=== PATIENT | male | born 1970 | race Caucasian/White ===

== ENCOUNTER 2017-06-13 00:58 | Emergency (ER) | payer BC ==
[~2017-06-13] VITALS: Ht 182.8 cm; Wt 131.5 kg
[~2017-06-13 00:58] MED LIST: AMARYL1 MG PO; COZAAR25 MG PO; INVOKANA100 M1 PO; KOMBIGLYZE XR 11 TE1 PO; ULTRAM50 MG PO
== END 2017-06-13 01:23 | disposition home or self-care (01) ==
LOC: ED 00:58
DX: B07.0 Plantar wart (principal); E11.9 Type 2 diabetes mellitus without complications; Z88.6 Allergy status to analgesic agent; Z79.899 Other long term (current) drug therapy

== ENCOUNTER → 2018-01-26 | Outpatient (CLI) | payer BC | END | disposition home or self-care (01) | LOC: RAD 10:17 | DX: M54.5 Low back pain (principal) ==

== ENCOUNTER → 2018-03-20 | Outpatient (CLI) | payer BC | END | disposition home or self-care (01) | LOC: CARD 11:34 | DX: I51.7 Cardiomegaly (principal) ==

== ENCOUNTER → 2018-07-23 | Outpatient (CLI) | payer BC ==
[2018-07-24 08:07] LABS: RHEUMATOID ARTHRITIS FACTOR <10.0 IU/mL (0.0-13.9)
[2018-07-25 22:08] LABS: CCP ANTIBODIES IGG/IGA 3 units (0-19)
== END | disposition home or self-care (01) ==
LOC: LAB 16:33
PROVIDERS: Internal Medicine
DX: M25.50 Pain in unspecified joint (principal)

== ENCOUNTER → 2019-05-17 | Outpatient (CLI) | payer OTHER, BC | END | disposition home or self-care (01) | LOC: MRI 12:37 | DX: S83.91XA Sprain of unspecified site of right knee, initial encounter (principal); S83.241A Other tear of medial meniscus, current injury, right knee, initial encounter; S83.411A Sprain of medial collateral ligament of right knee, initial encounter; X58.XXXA Exposure to other specified factors, initial encounter; Y93.89 Activity, other specified; Y92.89 Other specified places as the place of occurrence of the external cause; Y99.8 Other external cause status; M25.461 Effusion, right knee ==

== ENCOUNTER → 2023-01-25 | Outpatient (CLI) | payer OTHER | LOC: MRI 00:34 | PROVIDERS: ATTEND Family Medicine | DX: S43.401A Unspecified sprain of right shoulder joint, initial encounter (principal); S46.211A Strain of muscle, fascia and tendon of other parts of biceps, right arm, initial encounter; M75.100 Unspecified rotator cuff tear or rupture of unspecified shoulder, not specified as traumatic; M79.89 Other specified soft tissue disorders; M75.51 Bursitis of right shoulder; M77.8 Other enthesopathies, not elsewhere classified; M19.011 Primary osteoarthritis, right shoulder; X58.XXXA Exposure to other specified factors, initial encounter; Y93.89 Activity, other specified; Y92.89 Other specified places as the place of occurrence of the external cause; Y99.8 Other external cause status ==

== ENCOUNTER → 2023-08-30 | Outpatient (CLI) | payer OTHER, BC | END | disposition home or self-care (01) | LOC: RAD 10:32 | PROVIDERS: ATTEND Family Medicine | DX: S69.91XA Unspecified injury of right wrist, hand and finger(s), initial encounter (principal); X58.XXXA Exposure to other specified factors, initial encounter; Y93.89 Activity, other specified; Y92.89 Other specified places as the place of occurrence of the external cause; Y99.8 Other external cause status ==